=== PATIENT | male | born 1965 | race African-American/Black ===

== ENCOUNTER 2016-06-21 22:17 | Emergency (ER) | payer OTHER ==
[~2016-06-21] VITALS: Ht 175.3 cm; Wt 63.5 kg
[~2016-06-21 22:17] MED LIST: IBUPROFEN 600600 M1 PO; NOHOMEMEDICATIONS; NORCO 5-325 TA1 EACH PO; PROCTOZONE-HC30 GM RC
[2016-06-22 04:58] VITALS: BP 111/74
== END 2016-06-22 05:00 | disposition home or self-care (01) ==
LOC: ER 22:17
DX: F10.129 Alcohol abuse with intoxication, unspecified (principal)

== ENCOUNTER 2016-09-20 17:31 | Emergency (ER) | payer OTHER ==
[~2016-09-20] VITALS: Ht 175.3 cm; Wt 56.0 kg
[2016-09-20 18:08] LABS: HEMATOCRIT 37.4 % (42.0-52.0); HEMOGLOBIN 12.6 gm/dL (14.0-18.0); MCH 31.5 pg (26.0-34.0); MCHC 33.8 g/dL (28.0-37.0); MCV 93.2 fL (80.0-100.0); PLATELET COUNT 188 thou/uL (150-400); RBC 4.01 mil/uL (4.50-6.00); RDW 14.5 % (10.5-14.5); WBC 4.2 thou/uL (4.0-11.0)
[2016-09-20 18:09] LABS: MANUAL DIFF YES
[2016-09-20 18:16] LABS: CALCIUM 8.6 mg/dL (8.5-10.1); CREATININE 0.9 mg/dL (0.7-1.3)
[2016-09-20] MEDS ORDERED: NEURONTIN 300300 M1 PO (18:46)
[2016-09-20] MEDS ORDERED: PHENERGAN 25 MG25 M1 PO (18:46)
[2016-09-20 18:51] LABS: ABSOLUTE NEUTROPHILS 1.1 thou/uL (1.4-8.2); TOTAL CELL COUNT 100
[2016-09-20] MEDS ORDERED: ATIVAN1 MG PO (18:52)
[2016-09-20 19:05] VITALS: BP 113/78
== END 2016-09-20 19:06 | disposition home or self-care (01) ==
LOC: ER 17:31
PROVIDERS: Physician Assistant
DX: F10.129 Alcohol abuse with intoxication, unspecified (principal); F12.10 Cannabis abuse, uncomplicated

== ENCOUNTER 2016-10-18 12:56 | Emergency (ER) | payer OTHER ==
[~2016-10-18] VITALS: Ht 170.2 cm; Wt 63.5 kg
[~2016-10-18 12:56] MED LIST changes: +ATIVAN1 MG PO; +NEURONTIN 300300 M1 PO; +PHENERGAN 25 MG25 M1 PO
[2016-10-18 12:57] VITALS: BP 136/87
[2016-10-18 13:37] LABS: ABSOLUTE NEUTROPHILS 1.7 thou/uL (1.4-8.2); EOSINOPHILS 0.8 % (0.0-3.0); HEMATOCRIT 42.2 % (42.0-52.0); HEMOGLOBIN 14.2 gm/dL (14.0-18.0); LYMPHOCYTES 53.3 % (24.0-44.0); MCH 31.2 pg (26.0-34.0); MCHC 33.6 g/dL (28.0-37.0); MCV 92.8 fL (80.0-100.0); MONOCYTES 6.1 % (1.0-8.0); PLATELET COUNT 212 thou/uL (150-400); POLYS 38.8 % (36.0-66.0); RBC 4.55 mil/uL (4.50-6.00); RDW 14.3 % (10.5-14.5); WBC 4.3 thou/uL (4.0-11.0)
[2016-10-18 13:38] LABS: MANUAL DIFF NO
[2016-10-18 13:44] LABS: CALCIUM 8.6 mg/dL (8.5-10.1); CREATININE 0.8 mg/dL (0.7-1.3); POTASSIUM 3.8 mmol/L (3.5-5.1)
== END 2016-10-18 17:17 | disposition home or self-care (01) ==
LOC: ER 12:56
PROVIDERS: Nurse Practitioner
DX: F10.10 Alcohol abuse, uncomplicated (principal); G40.909 Epilepsy, unspecified, not intractable, without status epilepticus; F14.10 Cocaine abuse, uncomplicated

== ENCOUNTER 2018-10-19 00:07 | Emergency (ER) | payer OTHER ==
[~2018-10-19] VITALS: Ht 175.3 cm; Wt 63.5 kg
[2018-10-19 03:01] VITALS: BP 104/74
== END 2018-10-19 03:02 | disposition home or self-care (01) ==
LOC: ER 00:07
DX: S90.32XA Contusion of left foot, initial encounter (principal); W22.8XXA Striking against or struck by other objects, initial encounter; Y92.89 Other specified places as the place of occurrence of the external cause; Y93.89 Activity, other specified; Y99.8 Other external cause status

== ENCOUNTER 2018-10-30 20:42 | Emergency (ER) | payer OTHER ==
[~2018-10-30] VITALS: Ht 175.3 cm; Wt 61.2 kg
[2018-10-31] MEDS ORDERED: AUGMENTIN 875-1 EACH PO (05:09)
[2018-10-31 05:18] VITALS: BP 96/57
== END 2018-10-31 05:22 | disposition home or self-care (01) ==
LOC: ER 20:42
DX: S02.2XXA Fracture of nasal bones, initial encounter for closed fracture (principal); K04.7 Periapical abscess without sinus; F10.129 Alcohol abuse with intoxication, unspecified; Y90.9 Presence of alcohol in blood, level not specified; F17.210 Nicotine dependence, cigarettes, uncomplicated; X58.XXXA Exposure to other specified factors, initial encounter; Y93.89 Activity, other specified; Y92.89 Other specified places as the place of occurrence of the external cause; Y99.8 Other external cause status

== ENCOUNTER 2018-11-30 03:17 | Emergency (ER) | payer OTHER ==
[~2018-11-30] VITALS: Ht 175.3 cm; Wt 72.6 kg
[~2018-11-30 03:17] MED LIST changes: +AUGMENTIN 875-1 EACH PO
[2018-11-30 04:11] LABS: HEMATOCRIT 40.7 % (42.0-52.0); HEMOGLOBIN 13.3 gm/dL (14.0-18.0); MCH 30.6 pg (26.0-34.0); MCHC 32.5 g/dL (28.0-37.0); MCV 94.1 fL (80.0-100.0); RBC 4.33 mil/uL (4.50-6.00); RDW 14.6 % (10.5-14.5); WBC 3.4 thou/uL (4.0-11.0)
[2018-11-30 04:26] LABS: CALCIUM 9.1 mg/dL (8.5-10.1); CREATININE 0.8 mg/dL (0.7-1.3); POTASSIUM 4.7 mmol/L (3.5-5.1)
[2018-11-30 04:30] LABS: AMP/METHAMP Negative (Negative); BARBITURATES Negative (Negative); BENZODIAZEPINES Negative (Negative); COCAINE POSITIVE (Negative); METHADONE Negative (Negative); OPIATES Negative (Negative); PCP Negative (Negative)
[2018-11-30 05:51] VITALS: BP 133/84
== END 2018-11-30 05:51 | disposition short-term general hospital (02) ==
LOC: ER 03:17
PROVIDERS: Emergency Medicine
DX: S02.609A Fracture of mandible, unspecified, initial encounter for closed fracture (principal); F10.129 Alcohol abuse with intoxication, unspecified; Y90.8 Blood alcohol level of 240 mg/100 ml or more; Y04.8XXA Assault by other bodily force, initial encounter; Y93.89 Activity, other specified; Y92.89 Other specified places as the place of occurrence of the external cause; Y99.8 Other external cause status

== ENCOUNTER 2019-05-16 01:49 | Emergency (ER) | payer OTHER ==
[~2019-05-16] VITALS: Ht 175.3 cm; Wt 63.5 kg
--- NOTE | ~2019-05-16 | EMS ---
[facility] [address] [id number] EMS Patient Care Report Name: MARCELINA MERLOS Room #: DEP ISADORA Gomez#: [id number] Admission: 05/16/19 Attend Phys: Discharge: 05/16/19 Date of : 63 Report #: [id number] THIS REPORT FOR: //name// Report Transmitted: 05/16/2019 20:28 EMS Care Summary [place], [place]/[facility] Incident [id number] @ 05/16/2019 01:15 Incident Location [address] [place] [address] Patient MARCELINA MERLOS Male, 53 Years 1965 Patient Address [address] [place] [address] Patient History Seizures, Patient Allergies No known allergies, Patient Medications None Reported, Chief Complaint ETOH Intoxication Disposition Transported No Lights/[place] Dispatch Reason Overdose/Poisoning/Ingestion Transported To [facility] Narrative pd states that pt was found sleeping in the basement of the incident location. pd states that pt was difficult to wake up and had a strong odor consistent w/ alcoholic beverages about his person. pd states that they attempted to stand pt up but were unsuccessful. pd requested ems for transport. [facility] [address] [id number] EMS Patient Care Report Name: MARCELINA MERLOS Room #: DEP Jason#: [id number] Admission: 05/16/19 Attend Phys: Discharge: 05/16/19 Date of : 63 Report #: [id number] upon ems arrival, pt found laying supine on floor. pt in custody of pd. pt assisted to ambulance by ems and pd. Initial Vitals @:34GCS: 15, Assessments @:28MENTAL:Person Oriented,Time Oriented,Place Oriented,Event Oriented,SKIN:HEENT:Head/Face: No Abnormalities,Eyes: No Abnormalities,Neck/Airway: No Abnormalities,LUNG SOUNDS:General: No Abnormalities,Left Upper: No Abnormalities,Right Upper: No Abnormalities,Left Lower: No Abnormalities,Right Lower: No Abnormalities,ABDOMEN:General: No Abnormalities,Left Upper: No Abnormalities,Right Upper: No Abnormalities,Left Lower: No Abnormalities,Right Lower: No Abnormalities,PELVIS//GI:EXTREMITIES:Left Arm: No Abnormalities,Right Arm: No Abnormalities,Left Leg: No Abnormalities,Right Leg: No Abnormalities,PULSE:NEURO:No Abnormalities, Impression Overdose - Alcohol Procedures @01:28ALS AssessmentResponse: UnchangedFailed Timeline 01:15,Call Received 01:15,Dispatch Notified :15,Dispatched 01:17,En Route 01:25,On Scene :28,At Patient :28,ALS Assessment,Response: UnchangedFailed, 01:33,Depart Scene :34,BP: / M,PULSE: ,RR: R,SPO2: Ox,ETCO2: ,BG: ,PAIN: ,GCS: 15, 01:45,At Destination 02:00,Call Closed Disclaimer v1.1 Copyright 2020 [employer] This EMS Care Summary contains data elements from the applicable legal record (which may be displayed differently). It is designed to provide pertinent information for the following purposes: continuity of care, clinical quality, and state data reporting. The complete legal record is available to ED staff and administrators of the receiving hospital in [facility]'s Patient Tracker. All data is provided "as is."
[2019-05-16 02:45] LABS: ABSOLUTE NEUTROPHILS 1.6 thou/uL (1.4-8.2); BASOPHILS 0.7 % (0.0-2.0); EOSINOPHILS 1.2 % (0.0-3.0); HEMATOCRIT 40.5 % (42.0-52.0); HEMOGLOBIN 13.3 gm/dL (14.0-18.0); LYMPHOCYTES 48.4 % (24.0-44.0); MCH 30.1 pg (26.0-34.0); MCV 91.4 fL (80.0-100.0); MONOCYTES 9.7 % (1.0-8.0); PLATELET COUNT 185 thou/uL (150-400); RBC 4.43 mil/uL (4.50-6.00); RDW 14.4 % (10.5-14.5); WBC 4.1 thou/uL (4.0-11.0)
[2019-05-16 03:04] LABS: ANION GAP 8 mmol/L (7-16); BUN 8 mg/dL (7-18); CHLORIDE 105 mmol/L (98-107); CO2 30 mmol/L (21-32); CREATININE 0.7 mg/dL (0.7-1.3); GLUCOSE 83 mg/dL (74-106); POTASSIUM 4.2 mmol/L (3.5-5.1); SODIUM 143 mmol/L (136-145)
[2019-05-16 03:15] LABS: ALBUMIN 3.7 g/dL (3.4-5.0); DIRECT BILIRUBIN < 0.1 mg/dL (<0.1-0.2); MAGNESIUM 2.1 mg/dL (1.8-2.4); PHOSPHORUS 3.8 mg/dL (2.5-4.9); SGOT 25 U/L (15-37); SGPT 21 U/L (30-65); TOTAL BILIRUBIN < 0.1 mg/dL (<0.1-1.0); TOTAL PROTEIN 8.3 g/dL (6.4-8.2); TROPONIN-I <0.06 ng/mL (<0.06)
[2019-05-16 03:26] LABS: AMP/METHAMP Negative (Negative); BARBITURATES Negative (Negative); BENZODIAZEPINES Negative (Negative); COCAINE Negative (Negative); METHADONE Negative (Negative); OPIATES Negative (Negative); PCP Negative (Negative)
[2019-05-16 06:27] VITALS: BP 117/48
--- NOTE | 2019-05-17 07:46 | EKG ---
[facility] [place] [address] [place] [address] ELECTROCARDIOGRAM REPORT Name: MARCELINA MERLOS Room #: DEP [facility]#: [id number] Admission: 05/16/19 Attend Phys: Discharge: 05/16/19 Date of : 63 Report #: [id number] THIS REPORT FOR: cc: NO FAMILY PHYSICIAN or PCP NO FAMILY PHYSICIAN or PCP Peter Eric MD 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 05/17/19 0744 1 1 Peter Eric MD, [facility] /EPI
== END 2019-05-16 06:29 | disposition home or self-care (01) ==
LOC: ER 01:49
PROVIDERS: Emergency Medicine
DX: F10.129 Alcohol abuse with intoxication, unspecified (principal); Y90.8 Blood alcohol level of 240 mg/100 ml or more

== ENCOUNTER 2019-05-18 04:29 | Emergency (ER) | payer OTHER ==
[~2019-05-18] VITALS: Ht 175.3 cm; Wt 63.5 kg
[2019-05-18 06:13] VITALS: BP 114/71
== END 2019-05-18 06:14 | disposition home or self-care (01) ==
LOC: ER 04:29
DX: F10.920 Alcohol use, unspecified with intoxication, uncomplicated (principal); M54.5 Low back pain

== ENCOUNTER 2019-07-17 00:23 | Emergency (ER) | payer OTHER ==
[~2019-07-17] VITALS: Ht 175.3 cm; Wt 63.5 kg
[2019-07-17 08:40] VITALS: BP 118/73
== END 2019-07-17 08:40 | disposition home or self-care (01) ==
LOC: ER 00:23
DX: F10.129 Alcohol abuse with intoxication, unspecified (principal); Y90.9 Presence of alcohol in blood, level not specified; Z59.0 Homelessness

== ENCOUNTER 2019-08-23 15:10 | Emergency (ER) | payer OTHER ==
[~2019-08-23] VITALS: Ht 167.6 cm; Wt 61.2 kg
[2019-08-23 15:44] LABS: ABSOLUTE NEUTROPHILS 1.2 thou/uL (1.4-8.2); BASOPHILS 0.8 % (0.0-2.0); EOSINOPHILS 1.6 % (0.0-3.0); HEMATOCRIT 39.2 % (42.0-52.0); HEMOGLOBIN 13.2 gm/dL (14.0-18.0); LYMPHOCYTES 56.5 % (24.0-44.0); MCH 31.9 pg (26.0-34.0); MCHC 33.6 g/dL (28.0-37.0); MCV 94.9 fL (80.0-100.0); MONOCYTES 8.3 % (1.0-8.0); PLATELET COUNT 181 thou/uL (150-400); POLYS 32.8 % (36.0-66.0); RBC 4.13 mil/uL (4.50-6.00); RDW 14.3 % (10.5-14.5); WBC 3.5 thou/uL (4.0-11.0)
[2019-08-23 15:46] LABS: ANION GAP 9 mmol/L (7-16); BUN 5 mg/dL (7-18); CALCIUM 8.2 mg/dL (8.5-10.1); CHLORIDE 101 mmol/L (98-107); CO2 27 mmol/L (21-32); CREATININE 0.8 mg/dL (0.7-1.3); GLUCOSE 89 mg/dL (74-106); POTASSIUM 3.3 mmol/L (3.5-5.1); SODIUM 137 mmol/L (136-145)
[2019-08-23 15:57] LABS: ALBUMIN 3.2 g/dL (3.4-5.0); SGOT 140 U/L (15-37); SGPT 76 U/L (30-65); TOTAL BILIRUBIN 0.3 mg/dL (0.2-1.0); TOTAL PROTEIN 7.4 g/dL (6.4-8.2); TROPONIN-I <0.06 ng/mL (<0.06)
--- NOTE | 2019-08-23 16:50 | EKG ---
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: : 1965 Requested By: Elaine Valentine Order Number: [id number] MD: Peter Eric Measurements Intervals [place] Rate: 89 P: 51 [place]: 143 QRS: 65 QRSD: 90 T: 63 QT: 362 QTc: 441 Interpretive Statements Sinus rhythm Early repolarization Compared to ECG 05/16/2019 02:22:24 No significant change was found Electronically Signed On 08-23-2019 16:50:11 CDT by Peter Eric [email or web address] <ELECTRONICALLY SIGNED> By: Peter Eric MD, [facility] 08/23/19 1650 1538 1538 Peter Eric MD, [facility] /EPI
[2019-08-23 22:47] VITALS: BP 133/72
== END 2019-08-23 22:44 | disposition home or self-care (01) ==
LOC: ER 15:10
PROVIDERS: Physician Assistant
DX: S01.01XA Laceration without foreign body of scalp, initial encounter (principal); F10.129 Alcohol abuse with intoxication, unspecified; R94.5 Abnormal results of liver function studies; R74.8 Abnormal levels of other serum enzymes; X58.XXXA Exposure to other specified factors, initial encounter; Y93.89 Activity, other specified; Y92.89 Other specified places as the place of occurrence of the external cause; Y99.8 Other external cause status; Y90.9 Presence of alcohol in blood, level not specified

== ENCOUNTER 2019-12-07 22:04 | Emergency (ER) | payer OTHER ==
[~2019-12-07] VITALS: Ht 175.3 cm; Wt 68.0 kg
[2019-12-08 05:23] VITALS: BP 145/78
== END 2019-12-08 05:24 | disposition home or self-care (01) ==
LOC: ER 22:04
DX: F10.920 Alcohol use, unspecified with intoxication, uncomplicated (principal)